=== PATIENT | female | born 1955 | race Asian ===

== ENCOUNTER 2023-04-10 19:43 | Emergency (ER) | payer OTHER ==
[~2023-04-10] VITALS: Ht 165.1 cm; Wt 51.4 kg
[2023-04-10 19:54] VITALS: BP 134/95; PULSE 106; RESP 17; O2SAT 95
== END 2023-04-11 00:42 | disposition left against medical advice (07) ==
LOC: ER 19:43
DX: S61.412A Laceration without foreign body of left hand, initial encounter (principal); S60.410A Abrasion of right index finger, initial encounter; S60.412A Abrasion of right middle finger, initial encounter; S60.414A Abrasion of right ring finger, initial encounter; Z53.21 Procedure and treatment not carried out due to patient leaving prior to being seen by health care provider; W54.0XXA Bitten by dog, initial encounter; Y93.89 Activity, other specified; Y92.89 Other specified places as the place of occurrence of the external cause; Y99.8 Other external cause status